=== PATIENT | female | born 1985 | race African-American/Black ===

== ENCOUNTER 2023-07-05 18:53 | Emergency (ER) | payer MEDICAID, MEDICARE ==
[2023-07-05 19:53] LABS: SARS-CoV-2 NAA Rapid Test DETECTED (NotDetected)
[2023-07-05] MEDS ORDERED: Ibuprofen 200 MG TAB ONE (19:56)
[2023-07-05] MEDS ORDERED: Ibuprofen 600 MG TAB PO SCH (20:15)
== END 2023-07-05 20:03 | disposition home or self-care (01) ==
LOC: CSHERS 18:53
DX: U07.1 COVID-19 (principal); I10 Essential (primary) hypertension; F17.210 Nicotine dependence, cigarettes, uncomplicated
CPT/HCPCS: 0240U; 99283